=== PATIENT | female | born 1980 | race Caucasian/White ===

== ENCOUNTER 2016-12-24 13:45 | Inpatient (IN) | payer OTHER ==
[~2016-12-24] VITALS: Ht 149.9 cm; Wt 52.2 kg
[~2016-12-24 13:45] MED LIST: APAP/HYDROCODON1 T13 PO; COL100 PO; COLACE100 MG PO; FERROUS SULFAT325 M2 PO; LAC PO; LEVAQUIN750 MG PO; MAC100 PO; MOTRIN800 MG PO; NORCO1 TA2 PO; PRO10 PO; VITAMIN C100 M1 PO
[2016-12-24 16:35] LABS: BASOPHIL % 0.9 % (0-2); PLATELET COUNT 340 x10^3mcL (130-400); RED CELL DISTRIBUTION WIDTH 15.4 % (11.5-14.5)
[2016-12-24 16:41] LABS: CALCIUM 8.3 mg/dL (8.5-10.1); CARBON DIOXIDE 27.1 mmol/L (21-32); CHLORIDE SERUM 105 mmol/L (98-107); CREATININE SERUM 0.9 mg/dL (0.6-1.0); GFR1 > 60 mL/min; GLUCOSE SERUM 100 mg/dL (74-106); POTASSIUM SERUM 3.5 mmol/L (3.5-5.1); SODIUM SERUM 138 mmol/L (136-145)
[2016-12-24 16:45] LABS: ALKALINE PHOSPHATASE 95 U/L (46-116); ALT/SGPT 17 U/L (14-59); AST/SGOT 19 U/L (15-37); BILIRUBIN TOTAL 0.38 mg/dL (0.20-1.00); TOTAL PROTEIN, SERUM 7.2 g/dL (6.4-8.2)
[2016-12-24 16:55] LABS: ALBUMIN 3.3 g/dL (3.4-5.0)
[2016-12-24 18:13] VITALS: BP 95/53
[2016-12-24 18:17] LABS: CHOLESTEROL/HDL RATIO 2.9; FREE T4 1.09 ng/dL (0.76-1.46); FREE THYROXINE INDEX 2.4 ug/dL (1.4-4.5); T4(THYROXINE) 6.8 ug/dL (4.7-13.3)
[2016-12-24 18:19] LABS: T3 TOTAL 1.03 ng/mL
[2016-12-24 21:15] VITALS: BP 92/60
[2016-12-24 23:04] VITALS: Ht 149.9 cm; Wt 52.2 kg
[2016-12-25] VITALS (10 sets, daily range): BP systolic 71–100; BP diastolic 48–66
[2016-12-25 07:30] LABS: BASOPHIL % 0.6 % (0-2); PLATELET COUNT 264 x10^3mcL (130-400)
[2016-12-25 07:34] LABS: CARBON DIOXIDE 25.3 mmol/L (21-32); CHLORIDE SERUM 107 mmol/L (98-107); CREATININE SERUM 0.8 mg/dL (0.6-1.0); GFR1 > 60 mL/min; GLUCOSE SERUM 107 mg/dL (74-106); MAGNESIUM 1.7 mg/dL (1.8-2.4); POTASSIUM SERUM 3.9 mmol/L (3.5-5.1); SODIUM SERUM 137 mmol/L (136-145)
[2016-12-25 07:36] LABS: RED CELL DISTRIBUTION WIDTH 15.5 % (11.5-14.5)
[2016-12-26 05:46] VITALS: BP 102/62
[2016-12-26 06:59] LABS: CALCIUM 7.7 mg/dL (8.5-10.1); CARBON DIOXIDE 24.2 mmol/L (21-32); CHLORIDE SERUM 108 mmol/L (98-107); CREATININE SERUM 0.9 mg/dL (0.6-1.0); GFR1 > 60 mL/min; GLUCOSE SERUM 103 mg/dL (74-106); MAGNESIUM 1.7 mg/dL (1.8-2.4); POTASSIUM SERUM 3.9 mmol/L (3.5-5.1); SODIUM SERUM 142 mmol/L (136-145)
[2016-12-26 07:03] LABS: ALBUMIN 2.5 g/dL (3.4-5.0)
[2016-12-26 07:04] LABS: BASOPHIL % 0.6 % (0-2); PLATELET COUNT 252 x10^3mcL (130-400)
[2016-12-26 07:12] LABS: RED CELL DISTRIBUTION WIDTH 15.9 % (11.5-14.5)
[2016-12-26 07:32] LABS: AMPHETAMINE QUAL UR POSITIVE (NEG <=1000)
[2016-12-26 09:18] VITALS: BP 85/55
[2016-12-26 17:02] VITALS: BP 84/56
[2016-12-26 21:09] VITALS: BP 92/65
[2016-12-27 05:54] VITALS: BP 93/63
[2016-12-27 06:14] LABS: BASOPHIL % 0.4 % (0-2); PLATELET COUNT 298 x10^3mcL (130-400)
[2016-12-27 06:37] LABS: RED CELL DISTRIBUTION WIDTH 15.7 % (11.5-14.5)
[2016-12-27 06:40] LABS: CALCIUM 8.3 mg/dL (8.5-10.1); CHLORIDE SERUM 105 mmol/L (98-107); CREATININE SERUM 0.9 mg/dL (0.6-1.0); GFR1 > 60 mL/min; GLUCOSE SERUM 80 mg/dL (74-106); MAGNESIUM 1.8 mg/dL (1.8-2.4); PHOSPHOROUS 3.9 mg/dL (2.5-4.9); SODIUM SERUM 140 mmol/L (136-145)
[2016-12-27] MEDS ORDERED: AMBIEN5 MG PO (08:30)
[2016-12-27 09:03] LABS: microscopic required? NO
[2016-12-27 09:09] LABS: urine erythrocyte NEGATIVE (NEGATIVE)
[2016-12-27 09:20] VITALS: BP 88/55
[2016-12-27] MEDS ORDERED: NIFEDICAL XL30 MG PO (13:42)
[2016-12-27 15:00] VITALS: BP 93/62
[2016-12-27 15:46] VITALS: BP 88/55
== END 2016-12-27 16:22 | disposition home or self-care (01) | DRG 385 ==
LOC: ED 13:45 → MU 16:46
PROVIDERS: Emergency Medicine; Family Medicine; ADMIT Family Medicine
PROC: 0HDRXZZ Extraction of Toe Nail, External Approach (ICD-10-PCS; principal; 2016-12-25)
DX: L60.0 Ingrowing nail (principal); E43 Unspecified severe protein-calorie malnutrition; K85.90 Acute pancreatitis without necrosis or infection, unspecified; L02.611 Cutaneous abscess of right foot; L03.031 Cellulitis of right toe; L03.114 Cellulitis of left upper limb; L03.113 Cellulitis of right upper limb; I73.00 Raynaud's syndrome without gangrene; I10 Essential (primary) hypertension; E83.42 Hypomagnesemia; D64.9 Anemia, unspecified; F15.20 Other stimulant dependence, uncomplicated; Z22.322 Carrier or suspected carrier of Methicillin resistant Staphylococcus aureus; Z89.022 Acquired absence of left finger(s); Z89.021 Acquired absence of right finger(s); Z87.891 Personal history of nicotine dependence; Z68.23 Body mass index [BMI] 23.0-23.9, adult
CPT/HCPCS: 80307; 83880; 84439; G0480; J1885; J2001; J2270; J3490; J7030; J7040; Q0092

== ENCOUNTER 2017-09-09 13:44 | Emergency (ER) | payer OTHER ==
[~2017-09-09] VITALS: Ht 149.9 cm; Wt 49.4 kg
[~2017-09-09 13:44] MED LIST changes: +AMBIEN5 MG PO; +NIFEDICAL XL30 MG PO
[2017-09-09 15:19] VITALS: BP 96/54
== END 2017-09-09 15:19 | disposition home or self-care (01) ==
LOC: ED 13:44
DX: I73.00 Raynaud's syndrome without gangrene (principal); F17.200 Nicotine dependence, unspecified, uncomplicated; Z71.6 Tobacco abuse counseling
CPT/HCPCS: 99406

== ENCOUNTER 2017-09-14 15:47 | Inpatient (IN) | payer OTHER ==
[~2017-09-14] VITALS: Ht 149.9 cm; Wt 49.0 kg
[2017-09-14 17:41] LABS: BASOPHIL % 0.9 % (0-2); PLATELET COUNT 329 x10^3mcL (130-400)
[2017-09-14 17:42] LABS: RED CELL DISTRIBUTION WIDTH 14.8 % (11.5-14.5)
[2017-09-14 17:45] LABS: CALCIUM 8.8 mg/dL (8.5-10.1); CARBON DIOXIDE 28.5 mmol/L (21-32); CHLORIDE SERUM 102 mmol/L (98-107); CREATININE SERUM 0.9 mg/dL (0.6-1.0); GFR1 > 60 mL/min; GLUCOSE SERUM 108 mg/dL (74-106); POTASSIUM SERUM 3.7 mmol/L (3.5-5.1); SODIUM SERUM 136 mmol/L (136-145)
[2017-09-14 17:49] LABS: ALBUMIN 3.5 g/dL (3.4-5.0); ALKALINE PHOSPHATASE 77 U/L (46-116); ALT/SGPT 20 U/L (14-59); AST/SGOT 22 U/L (15-37); BILIRUBIN TOTAL 0.29 mg/dL (0.20-1.00); TOTAL PROTEIN, SERUM 8.1 g/dL (6.4-8.2)
[2017-09-14] MEDS ORDERED: PENTOXIFYLLINE400 MG PO (18:32)
[2017-09-14] MEDS ORDERED: AMLODIPINE BES2.5 M1 PO (18:32)
[2017-09-14 19:41] LABS: T3 TOTAL 1.27 ng/mL
[2017-09-14 19:50] LABS: FREE T4 1.12 ng/dL (0.76-1.46); FREE THYROXINE INDEX 2.7 ug/dL (1.4-4.5); T4(THYROXINE) 7.8 ug/dL (4.7-13.3)
[2017-09-14 20:04] LABS: CHOLESTEROL/HDL RATIO 3.1; MAGNESIUM 1.9 mg/dL (1.8-2.4); PHOSPHOROUS 3.5 mg/dL (2.5-4.9)
[2017-09-14 20:14] VITALS: BP 90/59
[2017-09-15] VITALS (8 sets, daily range): BP systolic 76–148; BP diastolic 46–130
[2017-09-15 04:16] LABS: CALCIUM 8.3 mg/dL (8.5-10.1); CARBON DIOXIDE 26.6 mmol/L (21-32); CHLORIDE SERUM 104 mmol/L (98-107); CREATININE SERUM 0.8 mg/dL (0.6-1.0); GFR1 > 60 mL/min; GLUCOSE SERUM 116 mg/dL (74-106); POTASSIUM SERUM 3.9 mmol/L (3.5-5.1); SODIUM SERUM 136 mmol/L (136-145)
[2017-09-15 05:00] LABS: BASOPHIL % 0.6 % (0-2); PLATELET COUNT 288 x10^3mcL (130-400)
[2017-09-15 05:06] LABS: RED CELL DISTRIBUTION WIDTH 14.8 % (11.5-14.5)
[2017-09-15 15:05] LABS: UA SPECIFIC GRAVITY >=1.030 (1.005-1.035); microscopic required? YES; urine erythrocyte NEGATIVE (NEGATIVE)
[2017-09-15 15:17] LABS: AMPHETAMINE QUAL UR POSITIVE (NEG <=1000)
[2017-09-16 06:50] VITALS: BP 95/52
[2017-09-16 08:34] VITALS: BP 77/52
[2017-09-16 14:47] VITALS: BP 76/49
[2017-09-16 15:13] VITALS: BP 84/58
[2017-09-16 16:53] VITALS: BP 87/55
[2017-09-16 21:12] VITALS: BP 88/57
[2017-09-17 05:00] VITALS: BP 99/59
[2017-09-17 08:50] VITALS: BP 90/56
== END 2017-09-17 10:55 | disposition left against medical advice (07) | DRG 346 ==
LOC: ED 15:47 → DU 18:12 → MU 18:12 → DU 19:00 → MU 09-15 11:38
PROVIDERS: Emergency Medicine; ADMIT Family Medicine
DX: I73.00 Raynaud's syndrome without gangrene (principal); N17.0 Acute kidney failure with tubular necrosis; K85.90 Acute pancreatitis without necrosis or infection, unspecified; D64.9 Anemia, unspecified; Z89.021 Acquired absence of right finger(s); F15.10 Other stimulant abuse, uncomplicated
CPT/HCPCS: 83880; 84439; J0690; J2405; J3490; J7030; Q0092

== ENCOUNTER 2017-12-04 13:09 | Emergency (ER) | payer OTHER ==
[~2017-12-04] VITALS: Ht 149.9 cm; Wt 49.0 kg
[~2017-12-04 13:09] MED LIST changes: +AMLODIPINE BES2.5 M1 PO; +PENTOXIFYLLINE400 MG PO
[2017-12-04 16:17] VITALS: BP 111/77
== END 2017-12-04 16:17 | disposition home or self-care (01) ==
LOC: ED 13:09
DX: I73.00 Raynaud's syndrome without gangrene (principal); M79.672 Pain in left foot; M79.671 Pain in right foot; G89.29 Other chronic pain

== ENCOUNTER 2018-02-03 17:04 | Emergency (ER) | payer OTHER ==
[~2018-02-03] VITALS: Ht 149.9 cm; Wt 49.9 kg
[2018-02-03 17:17] VITALS: Ht 149.9 cm; Wt 49.9 kg
[2018-02-03 19:40] VITALS: BP 107/65
== END 2018-02-03 19:40 | disposition home or self-care (01) ==
LOC: ED 17:04
DX: S60.812A Abrasion of left wrist, initial encounter (principal); X58.XXXA Exposure to other specified factors, initial encounter; Y93.89 Activity, other specified; Y92.89 Other specified places as the place of occurrence of the external cause; Y99.8 Other external cause status

== ENCOUNTER 2018-11-24 11:18 | Emergency (ER) | payer OTHER ==
[~2018-11-24] VITALS: Ht 149.9 cm; Wt 55.8 kg
[2018-11-24 11:40] VITALS: BP 96/45; Ht 149.9 cm; Wt 55.8 kg
== END 2018-11-24 15:12 | disposition home or self-care (01) ==
LOC: ED 11:18
DX: I73.00 Raynaud's syndrome without gangrene (principal); M35.00 Sjogren syndrome, unspecified; F15.10 Other stimulant abuse, uncomplicated; M32.9 Systemic lupus erythematosus, unspecified; Z89.022 Acquired absence of left finger(s); Z89.021 Acquired absence of right finger(s); Z89.422 Acquired absence of other left toe(s); Z89.421 Acquired absence of other right toe(s)

== ENCOUNTER 2018-12-01 15:22 | Inpatient (IN) | payer OTHER ==
[~2018-12-01] VITALS: Ht 149.9 cm; Wt 54.9 kg
--- NOTE | 2018-12-01 15:57 | NUR ---
PT SENT OUT TO LOBBY TO WAIT FOR A BED. NO DISTRESS NOTED AT THIS TIME. EQUAL AND UNLABORED CHEST RISE.
[2018-12-01 17:18] LABS: BASOPHIL % 0.7 % (0-2); PLATELET COUNT 372 x10^3mcL (130-400)
[2018-12-01 17:19] LABS: RED CELL DISTRIBUTION WIDTH 15.1 % (11.5-14.5)
--- NOTE | 2018-12-01 17:25 | NUR ---
PT RESTING IN BED ON MONITOR, AAOX4 WITH NO SIGNS OF DISTRESS AT THIS TIME. PT WITH C/O RT THUMB/LT WRIST DISCOLORATION/WOUNDS X 10 DAYS. PT WAS SEEN HERE A WEEK AGO AND GIVEN ANTIBIOTICS. PT ALSO WITH C/O DIARRHEA X 2 DAYS AGO AND NIGHT FEVERS. PT NOTED WITH DISOLORATION TO TIP OF RT THUMB AND HEALING WOUNDS TO LT WRIST.
[2018-12-01 17:27] LABS: CARBON DIOXIDE 26.8 mmol/L (21-32); CHLORIDE SERUM 102 mmol/L (98-107); CREATININE SERUM 0.8 mg/dL (0.6-1.0); GFR1 > 60 mL/min; GLUCOSE SERUM 104 mg/dL (74-106); POTASSIUM SERUM 3.2 mmol/L (3.5-5.1); SODIUM SERUM 139 mmol/L (136-145)
[2018-12-01 17:31] LABS: ALBUMIN 3.5 g/dL (3.4-5.0); ALKALINE PHOSPHATASE 137 U/L (46-116); ALT/SGPT 46 U/L (14-59); AST/SGOT 33 U/L (15-37); BILIRUBIN TOTAL 0.49 mg/dL (0.20-1.00)
[2018-12-01 17:32] LABS: TOTAL PROTEIN, SERUM 8.6 g/dL (6.4-8.2)
[2018-12-01] MEDS ORDERED: DISALCID500 MG PO (17:38)
[2018-12-01] MEDS ORDERED: PROZ10 PO (17:39)
[2018-12-01] MEDS ORDERED: HYDROCHLOROQUIN (17:39)
[2018-12-01] MEDS ORDERED: VIS25 PO (17:40)
--- NOTE | 2018-12-01 18:34 | NUR ---
DR CISNEROS AT BEDSIDE TO GO OVER PLAN OF CARE
--- NOTE | 2018-12-01 19:07 | NUR ---
REPORT RECEIVED FROM SELAM MILLER. PT'S CARE ASSUMED AT THIS TIME.
[2018-12-01 19:23] LABS: PHOSPHOROUS 3.2 mg/dL (2.5-4.9)
[2018-12-01 19:33] LABS: FREE T4 1.1 ng/dL (0.76-1.46); FREE THYROXINE INDEX 3.6 ug/dL (1.4-4.5); T3 TOTAL 1.3 ng/mL; T4(THYROXINE) 10.6 ug/dL (4.7-13.3)
--- NOTE | 2018-12-01 19:37 | NUR ---
PT AAOX3, VSS, SPEAKS IN FULL CLEAR SENTENCES, BREATHING EASY AND UNLABORED. X-RAY TEST BEING DONE AT BEDSIDE.
--- NOTE | 2018-12-01 19:53 | NUR ---
REPORT CALLED TO REGINA DESAI. OPPORTUNITY GIVEN TO ASK QUESTIONS. PT BEING TRANSPORTED TO FLOOR BY EMT. PT'S CARE COMPLETED BY THIS RN AT THIS TIME.
--- NOTE | 2018-12-01 20:05 | NUR ---
RECEIVED PT FROM ED VIA [facility], CAME IN DUE TO BILATERAL FINGERS PAIN. AAOX4. DENIES HEADACHE/DIZZINESS. ABLE TO FOLLOW COMMANDS. NO SOB NOTED. DENIES CHEST PAIN/PRESSURE. DENIES ABDOMINAL DISCOMFORT. BOWEL SOUNDS ACTIVE. W/ BLACK DISCOLORATION ON THE TIP OF THE RIGHT THUMB AND PINK DISCOLORATION W/ SWELLING ON THE RIGHT THUMB. C/O 10/10 BILATERAL FINGER PAIN. IV SITE ON THE RFA IS PATENT AND INTACT. SIDE RAILS UPX2. CALL LIGHT ON REACH. ENDORSED TO PRIMARY NURSE REGINA FOR CONTINUITY OF CARE
--- NOTE | 2018-12-01 20:10 | NUR ---
RECEIVED PT FROM ED. PT IS AAOX4 DENIES HEADACHE OR DIZZINESS, DENIES CHEST PAIN. DENIES N/V. LUNG SOUNDS CTA ON RA, NO SOB. PT IS AMBULATORY. IV RFA PATENT. PARTIAL FINGERS AMPUTATION TO BOTH HANDS. RIGHT THUMB RED COLOR WITH BLACK, AND SWOLLEN PICTURE TAKEN AND PLACED IN CHART. ABD SOFT AND ROUND, ACTIVE BOWEL SOUNDS. CONTACT ISOLATION. CALL BUTTON WITHIN REACH. WILL CONTINUE TO MONITOR.
[2018-12-01 20:21] VITALS: BP 106/50
[2018-12-01 20:24] VITALS: Ht 149.9 cm; Wt 54.9 kg
--- NOTE | 2018-12-01 20:52 | NUR ---
PT REPORTED HAVING PAIN ON BOTH HANDS 10/10 MEDICATED PER EMAR. WILL CONTINUE TO MONITOR.
--- NOTE | 2018-12-01 23:21 | NUR ---
PT REPROTED RIGHT THUMP PAIN, MEDICATED PER EMAR. WILL CONTINUE TO MONITOR.
--- NOTE | 2018-12-02 00:58 | NUR ---
PT ASLEEP AT THIS TIME, NO SIGNS OF DISTRESS NOTED. IV INFUSING WELL. WILL CONTINUE TO MONITOR.
--- NOTE | 2018-12-02 03:24 | NUR ---
PT REPORTED HAVING HAND PAIN, MEDICATED PER EMAR. WILL CONTINUE TO MONITOR.
--- NOTE | 2018-12-02 03:41 | NUR ---
ROUNDS MADE. PT RESTING, BREATHING EVEN AND UNLABORED WITH NO SIGNS OF DISTRESS NOTED. IV INFUSING WELL. WILL CONTINUE TO MONITOR.
--- NOTE | 2018-12-02 05:02 | NUR ---
PT SLEPT ON AND OFF THROUGHOUT THE NIGHT. BREATHING EVEN AND UNLABORED WITH NO SIGNS OF DISTRESS NOTED. IV RFA PATENT, INFUSING WELL. PT REPORTED HAVING PAIN ON RIGHT HAND/ARM, MEDICATED PER EMAR WITH SOME RELIEF. CALL BUTTON WITHIN REACH. WILL CONTINUE TO MONITOR AND ENDORSE CARE TO DAY SHIFT RN.
--- NOTE | 2018-12-02 06:01 | NUR ---
PT REPORTED HAVING PAIN, MEDICATED PER EMAR. WILL CONTINUE TO MONITOR.
[2018-12-02 06:05] VITALS: BP 86/56
[2018-12-02 06:49] LABS: BASOPHIL % 0.8 % (0-2); PLATELET COUNT 253 x10^3mcL (130-400)
[2018-12-02 07:07] LABS: CALCIUM 7.6 mg/dL (8.5-10.1); CARBON DIOXIDE 21.9 mmol/L (21-32); CHLORIDE SERUM 109 mmol/L (98-107); CREATININE SERUM 0.7 mg/dL (0.6-1.0); GFR1 > 60 mL/min; GLUCOSE SERUM 102 mg/dL (74-106); MAGNESIUM 1.8 mg/dL (1.8-2.4); PHOSPHOROUS 3.2 mg/dL (2.5-4.9); POTASSIUM SERUM 3.6 mmol/L (3.5-5.1); SODIUM SERUM 139 mmol/L (136-145)
--- NOTE | 2018-12-02 07:42 | NUR ---
PT AWAKE, DENIES ANY PAIN, NO SIGNS OF DISTRESSN NOTED. ENDORSED CARE TO DAY SHIFT RN, ALL QUESTIONS ADDRESSED.
--- NOTE | 2018-12-02 08:07 | NUR ---
PATIENT IN BED RESTING. NO COMPLAINTS OF PAIN. HANDS KEPT WARM VIA WARM BLANKETS PER PHYSICIAN ORDER. EATING BREAKFAST TRAY, TOLERATING. CALL LIGHT IN REACH, BED IN LOWEST POSITION.
--- NOTE | 2018-12-02 09:45 | NUR ---
PATIENT IN BR, RETURNED TO BED. RESTING, COMPLAINTS OF PAIN IN R HAND. PRN NORCO OFFERED AND ADMINISTERED. NO OTHER COMPLAINTS, WILL CONTINUE TO MONITOR.
[2018-12-02 09:49] VITALS: BP 83/41
--- NOTE | 2018-12-02 11:09 | NUR ---
WITH RESIDENTS AT BEDSIDE, EXAM PATIENT RT THUMB NOTED REDNESS/SWELLING/TIP BLACK. DISCUSS POC WITH PATIENT, PLAN CONSULT , ARTERIAL US. DISCUSS POSSIBLE AMPUTATION OF RT THUMB. PATIENT VERBALIZE UNDERSTAND. NEEDS MET. CALL LIGHT IN REACH.
--- NOTE | 2018-12-02 11:28 | NUR ---
PATIENT IN BED RESTING, PATIENT STATES THAT HER HAND STILL FEELS PAIN IN HER HAND. HAND IS ELEVATED . WILL ADMINISTER SCHEDULED TORADOL NEEDED. PATIENT ALSO STATES THAT HER IV SITE IS UNCOMFORTABLE. IV INFUSING WELL, NO SIGNS OF REDNESS, LEAKING. INFORMED PATIENT TO LET NURSE KNOW IF SITE IS PAINFUL OR BRUISING OR REDNESS OCCURS. WOUND CARE NURSE BERRY PRESENT, SPOKE WITH PATIENT. CALL LIGHT IN REACH.
--- NOTE | 2018-12-02 13:01 | NUR ---
WOUND CARE EVALUATION NOTE: REASON FOR EVALUATION: LEFT THUMB WOUND SKIN ASSESSMENT DONE WITH THIS 37 Y/O FEMALE PT ADMITTED FROM HOME TO [facility] WITH INITIAL DX OF LEFT THUMB PAIN. 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 ABOVE INFORMATION OBTAINED FROM PT.PT IS AAX4. SKIN IS WARM AND MOIST, BLE NO HAIR GROWTH, DORSAL PEDAL PULSES PRESENT AND NORMAL. CAPILLARY REFILLED < 2 SEC. PER PT. SHE IS ABLE TO AMBULATE TO . PLAN OF CARE DISCUSSED WITH PRIMARY RN AND PT. PT. VERBALIZING UNDERSTANDING. PLAN OF CARE DISCUSSED WITH DR. AGUERO. INTEGUMENTARY: -LEFT FIRST PHALANGES, SKIN INTACT WITH ERYTHEMA, +2 SWELLING AND PAINFUL TO TOUCH, 8/10,TIP OF FINGER WITH BROWN/BLACK COLOR 1X1CM, FEDE-NAIL SKIN DARK REDNESS OBSERVED. RECOMMENDATIONS: -SURGEON AND VASCULAR CONSULT -ULTRA SOUNDS / VASCULAR STUDY TO LEFT HAND -KEEP LEFT THUMB DRY AND CLEAN, OPEN TO AIR AND CONTINUE TO MONITOR FOR CIRCULATION ALL ABOVE RECOMMENDATIONS DISCUSSED WITH PRIMARY RN PLEASE CONTACT WOUND CARE NURSE FOR ANY QUESTION AND CHANGE OF WOUND CONDITION.
--- NOTE | 2018-12-02 13:30 | NUR ---
WOUND CARE EVALUATION NOTE: REASON FOR EVALUATION: RIGHT THUMB WOUND SKIN ASSESSMENT DONE WITH THIS 37 Y/O FEMALE PT [place] [facility] [place]IT[place] DX OF LEFT THUMB PAIN. PAST MEDICAL HX WITH RAYNAUD'S SYNDROME AND PATIAL AMPUTATIONS OF LEFT 3RD FINGER, RIGHT 3RD, 4TH FINGERS AND RIGHT 3RD TOE WITH OLD HEALED SURGICAL THIN SACRS. ABOVE INFO OBTAINED FROM PT.PT IS AAX4. SKIN IS WARM AND MOIST, BLE NO HAIR GROWTH, DORSAL PEDAL PULSES PRESENT AND NORMAL. CAPILLARY REFILLED < 2 SEC. PER PT. SHE IS ABLE TO AMBULATE TO BR. PLAN OF CARE DISCUSSED WITH PRIMARY RN AND PT. PT. VERBALIZING UNDERSTANDING. PLAN OF CARE DISCUSSED WITH DR. AGUERO. INTEGUMENTARY: -RIGHT HAND AND FOREARM DRY SCALLY SKIN -RIGHT FIRST PHALANGES, SKIN INTACT WITH ERYTHEMA, +2 SWELLING AND PAINFUL TO TOUCH, 8/10, TIP OF FINGER WITH BROWN/BLACK COLOR 1X1CM, FEDE-NAIL SKIN DARK REDNESS OBSERVED. -LEFT WRIST DRY BROWN SCABS RECOMMENDATIONS: -SURGEON AND VASCULAR CONSULT -ULTRA SOUNDS / VASCULAR STUDY TO RIGHT HAND -KEEP RIGHT THUMB DRY AND CLEAN, OPEN TO AIR AND CONTINUE TO MONITOR FOR CIRCULATION ALL ABOVE RECOMMENDATIONS DISCUSSED WITH PRIMARY RN PLEASE CONTACT WOUND CARE NURSE FOR ANY QUESTION AND CHANGE OF WOUND CONDITION.
--- NOTE | 2018-12-02 14:40 | NUR ---
PATIENT IN BED RESTING, SLIGHT COMPLAINTS OF PAIN. NO SOB. PATIENT STATES HER R HAND PAIN CONTINUES. PRN TORADOL IVP ADMINISTERED. WILL CONTINUE TO MONITOR FOR PAIN. ASSISTED PATIENT IN GATHERING HER JEWELRY, PLACED INTO DENTURE CONTAINER, NOTIFIED PATIENT THAT HOSPITAL IS NOT RESPONSIBLE FOR LOST BELONINGS. PATIENT STATES HER WILL BE IN TODAY TO COLLECT JEWELRY. CALL LIGHT IN REACH, BED IN LOWEST POSITION.
--- NOTE | 2018-12-02 16:20 | NUR ---
NOTIFIED BY FAHEEM LAUGHLIN THAT PATIENT BP WAS 85/41. PATIENT DENIES DIZZINESS,BLURRED VISION, SYNCOPE, NAUSEA. SKIN SIGNS WARM, PINK, DRY. PATIENT STATES THAT HER BP PRESSURE IS USUALLY IN THIS RANGE. WILL NOTIFY DR AGUERO ABOUT BP. IV CLINDAMYCIN INFUSING. MILD PAIN PRESENT, WILL ADMINISTER PRN NORCO PO. CALL LIGHT IN REACH, BED IN LOWEST POSITION.
--- NOTE | 2018-12-02 16:27 | NUR ---
SPOKE W DR BAY (COVERING FOR DR AGUERO), INFORMED HER OF PATIENTS HYPOTENSION. DR BAY NOW AWARE, NO INTERVENTIONS AT THIS TIME EXCEPT ATTEMPT TO AMBULATE PATIENT AND CONTINUE TO MONITOR BP.
[2018-12-02 16:43] VITALS: BP 85/41
[2018-12-02 17:47] VITALS: BP 84/56
--- NOTE | 2018-12-02 17:48 | NUR ---
PATIENT IN BED RESTING. FOLLOW UP ON BP READINGS. DANGLING AT BEDSIDE BP 82/50. ASYMPTOMATIC, DENIES CRONIN, DIZZINESS, BLURRED VISION, NONDIAPHORETIC. AMBULATE PATIENT TO BR AND RETURNED TO BED. BP TAKEN AGAIN 84/56, MAP 64. HR 84. PAGED DR AGUERO, WAITING FOR RESPONSE. CALL LIGHT IN REACH, WILL CONTINUE TO MONITOR.
--- NOTE | 2018-12-02 19:26 | NUR ---
DR. LANDIS CALLED , SPOKE W NURSE, INFORMED NURSE HE D/C CLEOCIN AND TO CONTINUE VANCOMYCIN. ENDORSE TO ONCOMING NURSE.
--- NOTE | 2018-12-02 20:42 | NUR ---
DR. CASSIDY AWARE OF LOW BLOOD PRESSURE AND STATED THAT SHE WILL TAKE A LOOK.
[2018-12-02 21:16] VITALS: BP 84/47
--- NOTE | 2018-12-03 01:06 | NUR ---
PATIENT QUIETLY SLEEPING WITH NO S/SX OF DISTRESS NOTED. BREATHING IS EVEN AND UNLABORED. IVF INFUSING TO RFA AT 100ML/HR NS, NO INFITLRATION NOTED. CALL LIGHT WITHIN REACH. REMAINED ON CONTACT PRECAUTIONS.
--- NOTE | 2018-12-03 03:26 | NUR ---
PATIENT AWAKE, COMPLAINING OF PAIN TO RIGHT HAND, MEDICATION PROVIDED.
[2018-12-03 06:11] VITALS: BP 82/49
[2018-12-03 06:36] LABS: BASOPHIL % 0.8 % (0-2); PLATELET COUNT 264 x10^3mcL (130-400)
[2018-12-03 06:45] LABS: RED CELL DISTRIBUTION WIDTH 15.5 % (11.5-14.5)
[2018-12-03 07:13] LABS: CALCIUM 7.7 mg/dL (8.5-10.1); CHLORIDE SERUM 109 mmol/L (98-107); CREATININE SERUM 0.7 mg/dL (0.6-1.0); GFR1 > 60 mL/min; GLUCOSE SERUM 99 mg/dL (74-106); MAGNESIUM 1.9 mg/dL (1.8-2.4); PHOSPHOROUS 2.8 mg/dL (2.5-4.9); POTASSIUM SERUM 3.9 mmol/L (3.5-5.1); SODIUM SERUM 139 mmol/L (136-145)
--- NOTE | 2018-12-03 08:00 | NUR ---
RECEIVED PATIENT A/A/OX4; NO RESP DISTRESS ON RA. DENIED CHEST PAIN. RT HAND BIG THUMB TIP BLACK DISCOLORATION. NO DRAINAGE. OPENED TO AIR. STATED RT THUMB PAIN, ALL PAIN MEDS WERE NOT EFFECTIVE. BUT PATIENT ABLE TO SLEEP. IVF OF NS 100CC/HR. IV SITE TO RFA INTACT. CALL LIGHT IN REACH. 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 CALL LIGHT IN REACH.
[2018-12-03 09:59] VITALS: BP 78/44
--- NOTE | 2018-12-03 13:25 | NUR ---
Initial Nutrition Assessment- Dx: Raynoud's Phenomenon, R thumb Ischemia PMHx: Raynaud's phenomenon, Hypotension, R middle finger amputation, Bilateral 4th digit gangrenous cellulitis w/ peripheral vascular Dz PSHx: amputation R 3rd finger at DIP, amputation L 4th finger at the mid portion of the DIP, amputation R 3rd finger distal phalanx. Labs: 12/03 Ca 7.7 L, WBC 3.9 L, H/H 10.6 L/31 L Meds: colace, iron, lactinex, zofran, NaCl IV Diet: Regular diet PO Intake: 12/02 B: 90% L: 90% Ht: 4' Wt: 121 lb, 55 kg BMI: 24.4 kg/m2 (normal) IBW: 95 lb, 43 kg %IBW: 127 UBW: 135 lb Age: 38 yrs old/ Female Food Allergies: NKFA Skin: R finger w/ ecchymosis, closed wound. Hilton: 20 Edema: none GI: WNL, w/ active bowel sounds. Last BM 12/03/18. Wound Consult for R thumb received. Per H&P, Patient is a 37 year old female with a history of Raynaud's, right and left third and fourth finger tip amputation, and methamphetamine use who presents to the ED with worsening right thumb pain x 1 day. Patient reports that she was seen in the ED on the 11/24/18 for similar complaints and was discharged home with viagra to help alleviate the vasoconstriction and pain. She states that she was non-compliant with her medication and had worsening right thumb pain associated with greenish blue discoloration that later developed an open wet wound. Per bedhuddle discussion, pt is for possible amputation if antibiotics doesn't work. Pt seen sleeping in bed, arousable w/ verbal stimuli. Pt reported of feeling very tired. She verified anthropometrics and reported last BM today. Per hard chart review for wound, no open wound as of now, Josr is warranted if/when amputation of tip of finger occurs. Problem with: no c/o N/V/D/C Problems with: Chewing: no Swallowing: no Current appetite: good Recent wt change: yes %wt change: 10% Vitamin/Supplement use: none Special diet at home: iron Physical activity: walking Education: pt was provided w/ verbal education on adequate protein intake for wound healing. Estimated Nutritional Needs Based on actual body weight 55 kg Energy: 6185-7904 kcal/d (30-35 kcal/kg-wound healing) Protein: 55-83g/d (1-1.5 g/kg -wound healing) Fluid: 0128-3397 ml/d (1 ml/kcal-fluid balance) or per doctor Nutrition Diagnosis Increased protein-calorie needs related to metabolic demands as evidenced by estimated calorie and protein needs for wound healing. Intervention *Continue Regular diet per MD orders. *If/when amputated, recommend adding Josr BID. (ONS will provide additional 160 kcal and 5gm protein daily) Monitor/Evaluate Goal: PO intake at least 75% of estimated needs Monitor: PO intake, Labs, GI function F/U in 2-3 days as high risk (12/05-12/06)
--- NOTE | 2018-12-03 13:25 | NUR ---
*Continue Regular diet per MD orders. *If/when amputated, recommend adding Josr BID. (ONS will provide additional 160 kcal and 5gm protein daily) Please see Nutritional Assessment for details.
--- NOTE | 2018-12-03 14:10 | NUR ---
C/O RT THUMB PAIN ON 05/23. NORCO 7.5/325 PO GIVEN. CONTINUE MONITOR.
--- NOTE | 2018-12-03 15:17 | NUR ---
C/O RT THUMB PAIN STILL ON 05/23. C/O NORCO WAS NOT EFFECTIVE. TORADOL 30MG IVP GIVEN. CONTINUE MONITOR.
[2018-12-03 16:22] VITALS: BP 85/53
--- NOTE | 2018-12-03 18:54 | NUR ---
AMBULATED TO BATHROOM. STATED VOID X4 AND BM X2 THIS HSIFT. NO S/S OF PAIN NOW. TOLERATED REGULAR DIET WELL. PATIENT'S B/P = 84/47. BUT PULSES STRONG. SKIN PINK IN COLOR AND WARM TO TOUCH. IVF OF NS 100CC/HR. ENDORSED CARE TO NOC NURSE.
--- NOTE | 2018-12-03 19:25 | NUR ---
REPORT RECIEVED FROM DAY SHIFT RN. PATIENT WAS SEEN AND IS RESTING COMFORTABLY IN BED. ON ROOM AIR. NO SOB OR DISTRESS NOTED. DENIES CHEST PAIN. C/O OF 6/10 RIGHT HAND PAIN. WILL MEDICATED LATER. TORADOL NOT DUE. IV TO THE RFA INFUSING NS WELL. PATENT AND INTACT. NO REDNESS OR SWELLING NOTED. RIGHT THUMB DARK COLOR NECROSIS NOTED. COMFORT AND SAFETY MEASURES MAINTAINED. CALL LIGHT IS WITHIN REACH. INSTURCTED PATIENT TO CALL FOR ASSISTANCE. BED IS LOCKED AND IN THE LOWEST POSITION SIDE RAILS UP X2. WILL CONTINUE TO MONITOR
[2018-12-03 20:41] VITALS: BP 87/50
--- NOTE | 2018-12-03 21:26 | NUR ---
PATIENT C/O OF 10/10 PAIN IN HER RIGHT HAND. PRN TORADOL WAS ADMINSITERED PRESCRIBED. WILL CONTINUE TO MONITOR AND REASSESS PAIN LEVEL. BP 87/50(62) HR 98. DR. CASSIDY GAVE THE OKAY TO GIVE REVATIO.
--- NOTE | 2018-12-03 22:12 | NUR ---
VANCO TROUGH 11.2. PHARMACIST SAID IT'S OKAY TO GIVE TO THE NEXT DOSE.
--- NOTE | 2018-12-03 22:13 | NUR ---
PATIENT IS C/O OF 10/10 PAIN IN HER RIGHT HAND. PRN TORADOL WAS ADMINISTERED PRESCRIBED. WILL CONTINUE TO MONITOR AND REASSESS PAIN LEVEL. BP87/50 (62), HR 98. DR. CASSIDY GAVE THE OKAY TO GIVE REVATIO.
--- NOTE | 2018-12-04 00:31 | NUR ---
PATIENT IS ASLEEP AT THIS TIME. ON ROOM AIR. NO SOB OR DISTRESS NOTED. CALL LIGHT WITHIN REACH. WILL CONTINUE TO MONITOR
--- NOTE | 2018-12-04 03:26 | NUR ---
PATIENT IS C/O OF 9/10 IN HER RIGHT HAND/THUMB. PATIENT STATES "THE PAIN IS JUST THERE". PRN NORCO WAS ADMINISTERED PRESCRIBED. EDUCATED THE PATIENT THAT DROSWINESS MAY OCCUR. PATIENT VERBALIZED UNDERSTANDING. WILL CONTINUE TO MONITOR PATIENT AND PAIN LEVEL.
[2018-12-04 05:15] VITALS: BP 89/48
--- NOTE | 2018-12-04 06:33 | NUR ---
PATIENT IS C/O OF 10/10 PAIN IN HER RIGHT HAND/THUMB. PRN TORADOL WAS ADMINISTERED PRESCRIBED. PATIENT REFUSED AM LABS. PATIENT STATED "I AM IN TOO MUCH PAIN RIGHT NOW. I DON'T WANT THEM TO DRAW MY BLOOD RIGHT NOW." EDUCATED PATIENT ON THE IMPORTANCE OF LAB DRAWS. PATIENT DEMONSTRATED UNDERSTANDING. LAB SAID TO CALL WHEN PATIENT WANTS LABS TO BE DRAWN. WILL ENDORSE TO DAY SHIFT RN.
--- NOTE | 2018-12-04 06:45 | NUR ---
PATIENT SLEPT IN INTERVALS THROUGHOUT THE NIGHT. NO ACUTE CHANGES NOTED. ON ROOM AIR. BREATHING IS EVEN AND UNLABORED. NO SOB OR DISTRESS NOTED. IV TO THE RFA INFUSING NS WELL. PATENT AND INTACT. NO REDNESS OR SWELLING NOTED. C/O OF PAIN X3. NO ADVERSE REACTION TO VANCOMYCIN. CALL LIGHT IS WITHIN REACH. BED IS LOCKED AND IN THE LOWEST POSITION. SIDE RAILS UPN X2. PATIENT REFUSED AM LABS. WILL ENDORSE CARE TO DAY SHIFT RN.
--- NOTE | 2018-12-04 08:00 | NUR ---
RECEIVED PATIENT SLEEPING AFTER BREAKFAST. NO RESP DISTRESS ON RA. DENIED CHEST PAIN AND ANY OTHER PAIN. RT THUMB TIP BLACKEN AND REDNESS TO RT THUMB. IVF OF NS 100CC/HR INFUSING WELL. CALL LIGHT IN REACH. CONTACT ISOLATION IN PLACE.
[2018-12-04 09:34] VITALS: BP 78/48
--- NOTE | 2018-12-04 13:10 | NUR ---
PATIENT WAKE UP AND C/O RT THUMB PAIN ON 03/23. PATIENT REFUSED NORCO. TOLADOL 30MG IVP GIVEN. CONTINUE MONITOR.
--- NOTE | 2018-12-04 14:29 | NUR ---
REPORTED TO DR. AGUERO WITH PATIENT'S B/P ALWAYS LOW. LAST B/P WAS 78/48. BUT SKIN WARM TO TOUCH AND PINK IN COLOR. ORDER OF TELE MONITOR RECEIVED.
--- NOTE | 2018-12-04 14:50 | NUR ---
TELE#[id number] APPLIED. SR, HR =77.
--- NOTE | 2018-12-04 17:00 | NUR ---
DR. ANN CAME TO SEE PATIENT. NEW ORDER OF SURGERY TOMORROW GIVEN.
[2018-12-04 17:12] VITALS: BP 91/55
--- NOTE | 2018-12-04 17:31 | NUR ---
C/O RT THUMB PAIN ON 03/23. NORCO 7.5/325 PO GIVEN. CONTINUE MONITOR.
--- NOTE | 2018-12-04 18:40 | NUR ---
PATIENT AGREED TO BLOOD DRAW NOW. LAB CALLED.
[2018-12-04 18:58] LABS: BASOPHIL % 0.4 % (0-2); PLATELET COUNT 297 x10^3mcL (130-400)
--- NOTE | 2018-12-04 19:00 | NUR ---
AT BED SIDE NOW. SURGICAL CONSENT SIGNED. ENDORSED CARE TO [facility] NURSE.
[2018-12-04 19:05] LABS: CALCIUM 8.5 mg/dL (8.5-10.1); CARBON DIOXIDE 24.1 mmol/L (21-32); CHLORIDE SERUM 110 mmol/L (98-107); CREATININE SERUM 0.8 mg/dL (0.6-1.0); GFR1 > 60 mL/min; GLUCOSE SERUM 118 mg/dL (74-106); MAGNESIUM 1.7 mg/dL (1.8-2.4); PHOSPHOROUS 2.4 mg/dL (2.5-4.9); POTASSIUM SERUM 4.1 mmol/L (3.5-5.1); RED CELL DISTRIBUTION WIDTH 15.6 % (11.5-14.5); SODIUM SERUM 143 mmol/L (136-145)
--- NOTE | 2018-12-04 19:15 | NUR ---
REPORT RECIEVED FROM DAY SHIFT RN. PATIENT WAS SEEN AND IS RESTING COMFORTABLY IN BED WITH FAMILY AT BEDSIDE. TELE 26. ON ROOM AIR. NO SOB OR DISTRESS NOTED. DENIES CHEST PAIN. NO C/O OF PAIN. IV TO THE RFA INFUSING NS WELL. PATENT AND INTACT. NO REDNESS OR SWELLING NOTED. RIGHT THUMB SWELLING/NECROSIS NOTED. CALL LIGHT IS WITHIN REACH. INSTRUCTED PATIENT TO CALL FOR ASSISTANCE. COMFORT AND SAFETY MEASURES MAINTAINED. BED IS LOCKED AND IN THE LOWEST POSITION. SIDE RAILS UP X2. WILL CONTINUE TO MONITOR.
[2018-12-04 20:34] VITALS: BP 96/63
--- NOTE | 2018-12-04 21:00 | NUR ---
MG IS 1.7. NOTIFIED DR. CASSIDY. COVERAGE WAS GIVEN. PATIENT IS ALSO C/O OF 10/10 PAIN IN HER RIGHT THUMB/HAND. PRN NORCO WAS ADMINSITERED PRESCRIBED. THIS NORCO IS A NEW ORDER. DR. CASSIDY SAID IT IS OKAY TO GIVE RIGHT NOW. EDUCATED PATIENT THAT IT MAY TAKE UP TO AN HOUR TO BECOME EFFECTIVE AND MAY CAUSE DROWSINESS. PATIENT VERBALIZED UNDERSTANDING. WILL CONTINUE TO MONITOR AND REASSESS PAIN LEVEL.
--- NOTE | 2018-12-04 22:49 | NUR ---
PATIENT STATED THE NORCO PRN IS NOT WORKING. NOTIFIED DR. CASSIDY. MORPHONE IVP 0.5 ML WAS ORDERED. PATIENT REFUSED THE MORPHINE AND STATED HER PAIN HE STARTING TO FEEL BETTER. MORPHINE 0.5ML WAS WASTED WITH GISELLE SCHAEFER WITNESS. WILL CONTINUE TO MONITOR AND ASSESS PAIN LEVEL.
[2018-12-05] VITALS (7 sets, daily range): BP systolic 76–123; BP diastolic 41–55
--- NOTE | 2018-12-05 01:06 | NUR ---
PATIENT C/O OF 10/10 PAIN IN HER RIGHT HAND/THUMB AFTER PRN NORCO WAS GIVEN. PRN MORPHINE WAS ADMINSITERED PRESCRIBED. EDUCATED PATIENT AND THAT DROWSINESS MAY OCCUR. PATIENT VERBALIZED UNDERSTANDING. WILL CONTINUE TO MONITOR AND REASSESS PAIN LEVEL.
[2018-12-05 02:47] LABS: microscopic required? NO
--- NOTE | 2018-12-05 03:04 | NUR ---
PATIENT IS C/O OF 10/10 PAIN IN HER RIGHT THUMB. PRN NORCO WAS ADMINSITERED PRESCRIBED. EDUCATED PATIENT THAT SLEEPINESS MAY OCCIR. PATIENT VERBALIZED UNDERSTANDING. WILL CONTINUE TO MONITOR AND REASSESS PAIN LEVEL
[2018-12-05 03:05] LABS: urine erythrocyte NEGATIVE (NEGATIVE)
[2018-12-05 03:45] LABS: AMPHETAMINE QUAL UR NONE DETECTED (See below)
--- NOTE | 2018-12-05 04:04 | NUR ---
PATIENT IS C/O OF PAIN 101/10 IN HER RIGHT THUMB/HAND. NORCO WAS NOT EFFECTIVE. PATIENT'S BP IS LOW 76/41 (56), HR 93, SO PRN MORPHINE CANNOT BE ADMINISTERED AT THIS TIME. WILL NOTIFY DR. CASSIDY. NONPHARM MEASURES IMPLEMENTED. ELEVATED PATIENT'S RIGHT ARM/HAND ON A PILLOW. WILL CONTINUE TO MONITOR PATIENT AND ASSESS PAIN LEVEL.
--- NOTE | 2018-12-05 05:28 | NUR ---
SPOKE WITH DR. CASSIDY REGARDING PATIENT'S PAIN AND LOW BP. SHE STATED TO WAIT FOR DR. GASPAR'S TO SEE THE PATIENT LATER THIS MORNING. WILL CONTINUE TO MONITOR AND USE NONPHARM MEASURES TO HELP DECREASE THE PATIENT'S PAIN LEVEL.
--- NOTE | 2018-12-05 06:56 | NUR ---
PATIENT SLEPT IN INTERVALS THROUGHOUT THE NIGHT. STILL C/O OF PAIN 10/10 IN THE RIGHT HAND/ THUMB. BP IS LOW, DR. HENDRICKSON AWARE. REFUSED AM LABS. ON ROOM AIR. BREATHING IS EVEN AND UNLABORED. DENIES CHEST PAIN. IV TO THE RFA INFUSING NS WELL. PATENT AND INTACT. NO REDNESS OR SWELLING NOTED. PATIENT NPO, SURGERY IN THE AFTERNOON. CALL LIGHT IS WITHIN REACH. BED IS LOCKED AND IN THE LOWEST POSITION. SIDE RAILS UP X2. WILL ENDORSE CARE TO DAY SHIFT RN.
--- NOTE | 2018-12-05 07:04 | NUR ---
PATIENT C/O OF 10/10 PAIN IN HER RIGHT HAND/THUMB. PRN NORCO WAS ADMINSITERED PRESCRIBED. WILL ENDORSE REASSESSMENT TO DAY SHIFT RN
--- NOTE | 2018-12-05 07:35 | NUR ---
PT IS AAOX4. FOLLOWS COMMANDS. DENIES H/A OR DIZZINES. PT MEDICATED BY NOC RN FOR PAIN IN R THUMB, NORCO 10MG PO. FLUIDS ENCOURAGED. RESP EVEN AND UNLABORED. LUNG SOUNDS CTA, ON R/A. TELE [address] READING NSR. ABDOMEN SOFT, NONTENDER, NONDISTENDED. PERIPHERAL PULSES PALPABLE. SKIN CDI. PT HAS TIP OF R THUMB NECROSIS WITH NON PITTING EDEMA, PATRICIO AND ELEVATED ON PILLOW. IV CATH TO RFA PATENT WITH N/S RUNNING AT 100ML, SITE WNL. CALL LIGHT WITHIN REACH. BED IN LOW POSITION.
[2018-12-05 08:20] LABS: BASOPHIL % 0.5 % (0-2); PLATELET COUNT 255 x10^3mcL (130-400); RED CELL DISTRIBUTION WIDTH 15.4 % (11.5-14.5)
[2018-12-05 08:39] LABS: CALCIUM 7.9 mg/dL (8.5-10.1); CARBON DIOXIDE 24.9 mmol/L (21-32); CHLORIDE SERUM 111 mmol/L (98-107); CREATININE SERUM 0.8 mg/dL (0.6-1.0); GFR1 > 60 mL/min; GLUCOSE SERUM 93 mg/dL (74-106); MAGNESIUM 1.8 mg/dL (1.8-2.4); PHOSPHOROUS 3.2 mg/dL (2.5-4.9); POTASSIUM SERUM 3.6 mmol/L (3.5-5.1); SODIUM SERUM 143 mmol/L (136-145)
--- NOTE | 2018-12-05 08:57 | NUR ---
AM ROUNDS DONE BY DR. FONSECA AND MEDICAL TEAM. PT NORCO TO BE INCREASED TO 10MG, PT TO BE FLUID BOLUSED FOR LOW B/P. TRENTAL HELD UNTIL POST FLUID BOLUS. PT AGREED WITH POC.
--- NOTE | 2018-12-05 09:26 | NUR ---
DUE MEDS GIVEN AND TOLERATED WELL. PT REMAINS NPO EXCEPT MEDS AT THIS TIME. NO C/O OF PAIN OF DISCOMFORT. COLACE HELP PER PT'S REQUEST. CALL LIGHT WITHIN REACH.
--- NOTE | 2018-12-05 10:34 | NUR ---
PT APPLIED UB Access WIPE IN PREPARATION FOR PROCEDURE.
--- NOTE | 2018-12-05 12:47 | NUR ---
PT BACK FROM PROCEDURE, PT HAD PARTIAL AMPUTATION OF RIGHT THUMB WITH DEBRIDMENT. WOUND LEFT OPEN AND COVERED WITH CDI 4X4 AND COVERED WITH GURWINDER. NO S/S OF DRAINAGE NOTED. PT DENIES PAIN AT THIS TIME. IVF N/S AT 100ML/HR STARTED. VS: 97.1, 73, 14, 93/55 (72), 97% ON R/A. PT AAOX4. RESP EVEN AND UNLABORED. NO DISTRESS NOTED. CALL LIGHT WITHIN REACH. BED IN LOWEST POSITION. WILL CONTINUE TO MONITOR.
--- NOTE | 2018-12-05 13:10 | NUR ---
PT KYLEIGH HELD, B/P /46. PT ASSYMPTOMATIC. DENIES PAIN, DISCOMFORT, DIZZINESS. NO DISTRESS NOTED. CALL LIGHT WITHIN REACH.
--- NOTE | 2018-12-05 13:21 | NUR ---
PT TRANSFERED TO O/R FOR PROCEDURE. IV CATH N/S LOCKED AT THIS TIME.
--- NOTE | 2018-12-05 14:47 | NUR ---
PT BACK FROM PROCEDURE FOR PARTIAL AMPUTATION OF R THUMB WITH DEBRIDEMENT. AREA LEFT OPEN AND COVERED WITH 4X4 AND GURWINDER. DRESSING CDI, WITH NO DRAINAGE NOTED. PT DENIES PAIN AND DISCOMFORT. IVF N/S AT 100ML STARTED. IV SITE PATENT AND WNL. VS: 97.1, 73, 14, 93/55 (72), O2 SAT 94% ON R/A. BED IN LOW POSITION. CALL LIGHT WITHIN REACH.
--- NOTE | 2018-12-05 17:17 | NUR ---
NORCO 10MG PO GIVEN FOR R HAND PAIN 03/23. FLUIDS ENCOURAGED. RESP EVEN AND UNLABORED. NO RESP DISTRESS NOTED. CALL LIGHT WITHIN REACH.
--- NOTE | 2018-12-05 18:27 | NUR ---
PT IS AAOX4. S/P R THUMB PARTIAL AMPUTATION AND DEBRIDMENT, SX WOUND COVERED WITH CDI DRESSING, NO DRAINAGE NOTED. PT DENIES PAIN OR DISCOMFORT AT THIS TIME. TELE [address] READING NSR. IVF RUNNING TO RFA, PATENT WITH NO S/S OF INFECTION OR INFILTRATION. BED IN LOW POSITION, CALL LIGHT WITHIN REACH.
--- NOTE | 2018-12-05 19:35 | NUR ---
RECEIVED PT AWAKE ALERT AND VERBALLY RESPONSIVE.S/P R THUMB PARTIAL AMUTATION AND DEBRIDEMANT TODAY WITH DRESSING CDI.C/O THROBBING PAIN ON SITE BUT DENIES ANY NEED FOR PAIN MEDS AT THIS TIME.DISCUSSED PAIN MGT TONIGHT AND AGREEABLE.BP 94/55 MMHG,HR 87.WILLKEEP R HAND ELEVATED ON A PILLOW.WILL CONTINUE TO MONITOR.
--- NOTE | 2018-12-06 05:08 | NUR ---
PT SLEPT WELL ALL NIGHT.R ARM ELEVATED ON A PILLOW.DRESSING TO R THIMB CDI.MEDICATED WITH TORADOL 30 MG X1 AND NORCO 10 MG PO X1 WITH GOOD RELIEF.NO ASE NOTED FROM VANCOMYCIN IV ATB.ALL NEEDS MET.WILL CONTINUE TO MONITOR.
[2018-12-06 05:35] VITALS: BP 103/70
[2018-12-06 06:28] LABS: BASOPHIL % 0.4 % (0-2); PLATELET COUNT 242 x10^3mcL (130-400)
[2018-12-06 06:48] LABS: RED CELL DISTRIBUTION WIDTH 15.7 % (11.5-14.5)
[2018-12-06 07:31] LABS: CALCIUM 8.4 mg/dL (8.5-10.1); CARBON DIOXIDE 23.9 mmol/L (21-32); CHLORIDE SERUM 110 mmol/L (98-107); CREATININE SERUM 0.7 mg/dL (0.6-1.0); GFR1 > 60 mL/min; GLUCOSE SERUM 127 mg/dL (74-106); PHOSPHOROUS 2.7 mg/dL (2.5-4.9); POTASSIUM SERUM 3.9 mmol/L (3.5-5.1); SODIUM SERUM 142 mmol/L (136-145)
--- NOTE | 2018-12-06 07:40 | NUR ---
PT IS AAOX4, FOLLOWS COMMANDS. TELE [address] READING NSR. RESP EVEN AND UNLABORED. LUNG SOUNDS CTA, ON R/A. ABODOMEN SOFT, NONTENDER, NONDISTENDED. BOWEL SOUNDS ACTIVE. PERIPHERAL PULSES PALPABLE. PT IS S/P R THUMB PARTIAL AMBUTATION, OPEN AND COVERED WITH 4X4 AND GURWINDER WRAP. R HAND NON PITTING EDEMA NOTED, ELEVATED ON PILLOW AT THIS TIME. PT DENIES PAIN AT THIS TIME. CALL LIGHT WITHIN REACH. BED IN LOW POSITION.
[2018-12-06 08:01] VITALS: BP 99/64
--- NOTE | 2018-12-06 09:40 | NUR ---
DUE MEDS GIVEN AND TOLERATED WELL. RESP EVEN AND UNLABORED. NO DISTRESS NOTED. PT STATES SHE HAS PAIN IN R THUMB BUT TOLERABLE AT THIS TIME.
[2018-12-06 12:19] VITALS: BP 96/70
--- NOTE | 2018-12-06 12:28 | NUR ---
NORCO 10/325MG PO GIVEN FOR R THUMB PAIN 07/23. RESP EVEN AND UNLABORED. NO DISTRESS NOTED. R ARM ELEVATED ON PILLOW. FLUIDS ENCOURAGED. CALL LIGHT WITHIN REACH.
--- NOTE | 2018-12-06 13:38 | NUR ---
CALLED AND SPOKE TO , IN FOLLOW UP WITH WOUND CARE FOR PT RT THUMB DRSG CHANGE. SAYS, TO DO RT THUMB DRSG CHANGE EVERY OTHER DAY WITH EITHER ADAPTIC OR XEROFORM DRSG AND ALSO TO DISCHARGE PT HOME WITH PO ANTIBIOTIC. NALDO(NURSE PRACTITIONER) ASSIGNED TO THIS PT MADE AWARE OF ABOVE.
[2018-12-06] MEDS ORDERED: KEFLEX500 M1 PO (13:54)
[2018-12-06] MEDS ORDERED: TRAMADOL HCL50 MG PO (13:54)
--- NOTE | 2018-12-06 14:52 | NUR ---
PT STATED SHE HAS NO HOME TO RETURN TO. CASE MANAGEMENT AWARE AND SPOKE WITH PT. PLANS ARE PENDING AT THIS TIME DUE TO PT BEING ON PROBATION AND UNABLE TO LEAVE [facility] TO [facility] CASE MANAGEMENT REFERENCED.
[2018-12-06 15:11] VITALS: BP 96/70
--- NOTE | 2018-12-06 15:44 | NUR ---
TORADOL 30 MG IVP FOR PAIN 05/23. RESP EVEN AND UNLABORED. NO DISTRESS NOTED. CALL LIGHT WITHIN.
[2018-12-06 16:03] VITALS: BP 98/63
--- NOTE | 2018-12-06 17:08 | NUR ---
NORCO 10MG GIVEN FOR R HAND PAIN 04/22. DRESSING CHANGE DONE ON HAND, CLEANSED AREA WITH N/S, PATTED DRY, APPLIED XEROFORM PLACED, COVERED WITH 4X4 AND WRAPPED WITH GAUZE. PT TOLERATED PROCEDURE WELL. CALL LIGHT WITHIN REACH.
--- NOTE | 2018-12-06 17:40 | NUR ---
PT DISCHARGED TO A HER GRANDPA GURPREET[facility]S HOUSE. PT STATED SHE WILL ABLE TO STAY THERE UNTIL SATURDAY WHEN HER DRUM SANDER OFFBEARER WILL BE ABLE TO GET HER INTO A REHAB CENTER. PT WAS GIVEN DRESSING SUPPLIES FOR R THUMB WOUND AND TAUGHT HOW TO DO A DRESSING CHANGE. PT VERBALIZED UNDERSTANDING. PT D/C TO FAMILY'S HOME IN NO DISTRESS. D/C FORMS SIGNED AND REVIEWED WITH PT. IV CATH TO RFA REMOVED INTACT, SITE WNL, COVERED WITH GAUZED AND BANDAID. VS: 98.3, 78 18, 98/63, 98% ON R/A. PT DENIES PAIN AND DISCOMFORT AT TIME OF D/C. ALL PERSONAL BELONGINGS TAKEN HOME.
== END 2018-12-06 18:03 | disposition home or self-care (01) | DRG 316 ==
LOC: ED 15:22 → MU 19:16 → DU 19:16 → MU 19:54 → DU 12-04 14:30
PROVIDERS: Emergency Medicine; Internal Medicine; Neuromusculoskeletal Medicine, Sports Medicine; ADMIT Family Medicine
PROC: 0X6L0Z3 Detachment at Right Thumb, Low, Open Approach (ICD-10-PCS; principal; 2018-12-05 13:00)
DX: I73.01 Raynaud's syndrome with gangrene (principal); M32.9 Systemic lupus erythematosus, unspecified; M35.00 Sjogren syndrome, unspecified; E87.6 Hypokalemia; L02.511 Cutaneous abscess of right hand; M06.9 Rheumatoid arthritis, unspecified; F15.11 Other stimulant abuse, in remission; I99.8 Other disorder of circulatory system; J45.909 Unspecified asthma, uncomplicated; S61.001A Unspecified open wound of right thumb without damage to nail, initial encounter; L03.011 Cellulitis of right finger; R23.0 Cyanosis; X58.XXXA Exposure to other specified factors, initial encounter; Y93.89 Activity, other specified; Y92.89 Other specified places as the place of occurrence of the external cause; Y99.8 Other external cause status; Z89.022 Acquired absence of left finger(s); Z89.021 Acquired absence of right finger(s); Z91.14 Patient's other noncompliance with medication regimen; Z86.14 Personal history of Methicillin resistant Staphylococcus aureus infection
CPT/HCPCS: 83880; 84439; J1170; J1885; J2001; J2270; J2405; J3010; J3370; J3490; J7030; Q0092; Q0177